=== PATIENT | female | born 1965 | race Caucasian/White ===

== ENCOUNTER 2023-02-16 02:22 | Outpatient (CLI) | payer MEDICARE, OTHER, SELFPAY | END 2023-02-16 02:23 | disposition home or self-care (01) | LOC: AMB 02-17 02:25 | PROVIDERS: PCP Family Medicine; Visit Provider Family Medicine | DX: S09.90XA Unspecified injury of head, initial encounter (principal); W18.30XA Fall on same level, unspecified, initial encounter; Y92.000 Kitchen of unspecified non-institutional (private) residence as the place of occurrence of the external cause | CPT/HCPCS: A0425; A0427 ==

== ENCOUNTER 2023-02-16 02:41 | Emergency (ER) | payer MEDICARE, OTHER, SELFPAY ==
[2023-02-16] VITALS (42 sets, daily range): BP systolic 84–114; BP diastolic 56–87; PULSE 80–96; RESP 16; TEMP 36; O2SAT 93–98
--- NOTE | 2023-02-16 03:06 | ED_ITS ---
HPI - General Adult General Chief complaint: Head Injury/Pain Stated complaint: head laceration Time Seen by Provider: 02/16/23 03:05 History of Present Illness HPI narrative: pt had unwitnessed fall, estimated 0030. was found by son in house. pt does not remember the fall. pt has laceration to head with hematoma. pt not on blood thinners. no neck pain. pt arrived with c?collar applied by EMS. 57-year-old woman presenting to the emergency department via EMS. Red trauma activated. Initial blood pressure 87/60. Noted to have a lot of blood at the scene. Further questioning does sound as though alcohol is likely involved. May have been 2 falls. Did fall down some concrete steps at 1 point. EMS reported broken glass. Does remember the fall down the stairs but does not remember the moment of hitting her head. Not having any neck pain. Found by son who called for help. There was about 2 hours between fall and being found. Sounds as though there have been falls before. Denies abdominal pain or back pain. No noted back pain. Only complaint of pain is her head. No visual loss or change. No extremity pain. This evening was in usual state of health without fever, diarrhea, shortness of breath, vomiting. Is not anticoagulated. However notes medications to be ?several?. History of cervical spine surgery/fusion. Related Data Allergies Allergy/AdvReac Type Severity Reaction Status Date / Time oxycodone Allergy Severe Verified 02/16/23 03:02 bee venom protein (honey bee) Allergy Unknown Verified 02/16/23 03:02 morphine Allergy Unknown Verified 02/16/23 03:02 omeprazole Allergy Unknown Verified 02/16/23 03:02 strawberry Allergy Unknown Verified 02/16/23 03:02 Review of Systems Status of ROS: Reports: 6 or more systems reviewed and unremarkable except as noted in History and below [facility] Social History Smoking Status: Current every day smoker How often do you have a drink containing alcohol: 2-3 times a week How many standard drinks containing alcohol do you have on a typical day: 3 or 4 AUDIT-C Alcohol total score: 4 Non-prescribed substance use: denies use Exam Narrative: Exam Narrative: Pleasant. NAD. Arrives with C-collar. GCS of 15. Supporting on airway breathing easily. Large caked and fresh blood the left parietal scalp. She has abrasion minimal bleeding at the right knee. Cranial nerves 2-12 are intact. Pupils are equal and briskly reactive. Able to move all extremities without difficulty with what I appreciate is normal level of strength. Head as noted above with hematoma in the area of blood. About half a racquetball sized. Difficult to assess without further cleaning. On initial evaluation though I can not appreciate a singular laceration. Neck is with C-collar. I am not able to palpate any areas of pain. Chest is without tenderness. No clavicular tenderness. No shoulder area tenderness. No pain to palpation of upper extremities. Abdomen is soft and nontender without evidence of injury. Rolling to examine the back is without tenderness or abnormality to palpation. No abrasion. Right knee is noted with a light abrasion. No surrounding swelling. Lower extremities are without edema otherwise. Generally well perfused. Const: Vital Signs, click to edit/add: Vital Signs - 24 hr 02/16/23 02:51 02/16/23 02:52 02/16/23 02:56 Temperature 96.8 F L Pulse Rate 89 88 Pulse Rate [Left P ulse Oximeter] 85 Respiratory Rate 16 Blood Pressure 102/68 Blood Pressure [Ri ght Upper Arm] 89/62 L Pulse Oximetry 97 97 [facility] 02/16/23 03:00 02/16/23 03:01 02/16/23 03:10 Temperature Pulse Rate 84 86 83 Pulse Rate [Left P ulse Oximeter] Respiratory Rate Blood Pressure 100/84 Blood Pressure [Ri ght Upper Arm] Pulse Oximetry 97 97 96 [facility] 02/16/23 03:12 02/16/23 03:20 02/16/23 03:22 Temperature Pulse Rate 81 86 85 Pulse Rate [Left P ulse Oximeter] Respiratory Rate Blood Pressure 106/67 102/87 Blood Pressure [Ri ght Upper Arm] Pulse Oximetry 97 97 97 [facility] 02/16/23 03:30 02/16/23 03:32 02/16/23 03:40 Temperature Pulse Rate 81 80 82 Pulse Rate [Left P ulse Oximeter] Respiratory Rate Blood Pressure 108/68 Blood Pressure [Ri ght Upper Arm] Pulse Oximetry 96 97 95 [facility] 02/16/23 03:42 08/27/23 03:50 02/16/23 03:51 Temperature Pulse Rate 83 84 87 Pulse Rate [Left P ulse Oximeter] Respiratory Rate Blood Pressure 101/67 99/64 Blood Pressure [Ri ght Upper Arm] Pulse Oximetry 95 94 94 Oxygen Delivery Me thod 02/16/23 03:52 02/16/23 04:00 02/16/23 04:02 Temperature Pulse Rate 87 86 86 Pulse Rate [Left P ulse Oximeter] Respiratory Rate Blood Pressure 102/68 Blood Pressure [Ri ght Upper Arm] Pulse Oximetry 94 94 96 Oxygen Delivery Me thod 02/16/23 04:10 02/16/23 04:31 02/16/23 04:33 Temperature Pulse Rate 83 87 83 Pulse Rate [Left P ulse Oximeter] Respiratory Rate Blood Pressure 107/70 Blood Pressure [Ri ght Upper Arm] Pulse Oximetry 95 95 97 Oxygen Delivery Me thod 02/16/23 04:40 02/16/23 04:50 02/16/23 05:00 Temperature Pulse Rate 87 86 89 Pulse Rate [Left P ulse Oximeter] Respiratory Rate Blood Pressure Blood Pressure [Ri ght Upper Arm] Pulse Oximetry 95 94 93 Oxygen Delivery Me thod 02/16/23 05:02 02/16/23 05:10 02/16/23 05:20 Temperature Pulse Rate 88 86 86 Pulse Rate [Left P ulse Oximeter] Respiratory Rate Blood Pressure 91/56 L Blood Pressure [Ri ght Upper Arm] Pulse Oximetry 95 95 94 Oxygen Delivery Me thod 02/16/23 05:30 02/16/23 05:32 02/16/23 05:40 Temperature Pulse Rate 90 90 87 Pulse Rate [Left P ulse Oximeter] Respiratory Rate Blood Pressure 84/61 L Blood Pressure [Ri ght Upper Arm] Pulse Oximetry 94 95 95 Oxygen Delivery Me thod 02/16/23 05:50 02/16/23 06:00 02/16/23 06:02 Temperature Pulse Rate 85 88 90 Pulse Rate [Left P ulse Oximeter] Respiratory Rate Blood Pressure 97/66 Blood Pressure [Ri ght Upper Arm] Pulse Oximetry 95 94 95 Oxygen Delivery Me thod 02/16/23 06:10 02/16/23 06:20 02/16/23 06:30 Temperature Pulse Rate 87 91 88 Pulse Rate [Left P ulse Oximeter] Respiratory Rate Blood Pressure Blood Pressure [Ri ght Upper Arm] Pulse Oximetry 94 94 95 Oxygen Delivery Me thod 02/16/23 06:32 02/16/23 06:40 02/16/23 06:50 Temperature Pulse Rate 85 87 89 Pulse Rate [Left P ulse Oximeter] Respiratory Rate Blood Pressure 114/70 Blood Pressure [Ri ght Upper Arm] Pulse Oximetry 96 95 95 Oxygen Delivery Me thod 02/16/23 07:00 02/16/23 07:02 02/16/23 07:10 Temperature Pulse Rate 92 96 88 Pulse Rate [Left P ulse Oximeter] Respiratory Rate Blood Pressure 99/68 Blood Pressure [Ri ght Upper Arm] Pulse Oximetry 95 95 95 Oxygen Delivery Me thod Documenting provider has reviewed patient's vital signs: yes Course Vital Signs Vital signs: Initial Vital Signs Pulse Rate 89 02/16/23 02:51 Blood Pressure 102/68 02/16/23 02:51 Blood Pressure Mean 79 02/16/23 02:51 Pulse Oximetry 97 02/16/23 02:51 Vital Signs Pulse Rate 89 02/16/23 02:51 Blood Pressure 102/68 02/16/23 02:51 Pulse Oximetry 97 02/16/23 02:51 Temperature 96.8 F L 02/16/23 02:56 Pulse Rate 88 02/16/23 07:10 Respiratory Rate 16 02/16/23 02:56 Blood Pressure 99/68 02/16/23 07:02 Pulse Oximetry 95 02/16/23 07:10 Oxygen Delivery Method Room Air 02/16/23 02:56 Medical Decision Making MDM Narrative Medical decision making narrative: Traumatic fall affected by alcohol. There appears to been loss of consciousness . Will be imaging head and neck. I do not believe the knee needs imaging. Then reassess scalp for potential repair. IV fluid resuscitation has been initiated. Will draw blood as well given potential degree of bleeding. Sent for CT head and neck imaging. I do review these images. Soft tissue swelling and left side parietal hematoma. I do not see intracranial acute abnormality nor any acute bony abnormality to the cervical spine. Radiology over-read as below CT head IMPRESSION: No acute intracranial posttraumatic finding. Subcutaneous hematoma in the left parietal region. No calvarial fracture. CT neck FINDINGS: : There is straightening which is usually due to muscle spasm, positioning or immobilization device. There are degenerative changes. There is no visible acute fracture, dislocation or destructive process. There is anterior cervical fusion at C5 through C7. There is posterior fusion at C6 and C7. Heterogeneous nodularity regarding both thyroid lobes without discrete measurable mass. Similar to November 25, 2016. Apical bullous disease similar to the prior study. IMPRESSION: Straightening. Postsurgical changes. Degenerative changes. No acute appearing finding when compared to November 25, 2016 Alcohol level was 0.15. Unexpected finding of neutrophilia at nearly 28,000. She indicates some familiarity with this. Did request smear as well which apparently was unremarkable. Hemoglobin hematocrit are reassuring though I would presume them to drift a little down yet. Platelets of 3 3 8 Did require some Zofran for nausea. Soaking and cleaning the blood from her scalp. Am able to visualize a couple points over this hematoma that are oozing. More like the skin is split/thinned from impact. Oozing blood. Largest of which is about 1 and half cm. After injecting with lidocaine with epinephrine to help control bleeding/feel., placed 3 interrupted 3-0 Ethilon sutures. This did control the bleeding. Subsequently antibiotic ointment and light pressure dressing applied. Has not bled through dressing prior to departure. Remains vitally well. See patient discharge plan Lab Data Lab results reviewed: Yes I reviewed the patient's lab results Labs: Lab Results 02/16/23 Range/Units 04:10 WBC 27.91 H* (4.50-11.00) K/uL RBC 3.91 L (4.00-5.20) m/uL Hgb 12.6 (12.0-16.0) gm/dL Hct 37.6 (33.0-51.0) % MCV 96 (80-100) fL MCH 32 (26-34) pg MCHC 34 (32-36) gm/dL RDW Coeff of Yecenia 13.8 (11.5-15.5) % Plt Count 338 (140-440) K/uL Neut % (Auto) 84.6 H (42.0-72.0) % Lymph % (Auto) 6.7 L (20-44) % Alfalfa % (Auto) 4.7 (0.0-11.0) % Eos % (Auto) 0.1 (0.0-7.0) % Baso % (Auto) 0.2 (0.0-3.0) % Neut # (Auto) 23.60 H (1.7-7.0) K/uL Lymph # (Auto) 1.90 (0.90-2.90) K/uL Alfalfa # (Auto) 1.30 H (0.00-0.90) K/UL Eos # (Auto) 0.00 (0.00-0.50) K/uL Baso # (Auto) 0.10 (0.00-0.30) K/uL Abs Immat Gran (auto) 1.00 H (0.00-0.30) K/uL Imm/Tot Granulo (auto) 3.7 % Diff Slide Review Acceptable Review (Acceptable) Sodium 139 (135-149) mmol/L Potassium 4.1 (3.6-5.1) mmol/L Chloride 104 (96-114) mmol/L Carbon Dioxide 22 (20-32) mmol/L Anion Gap 13 (7-15) mEq/L BUN 11 (7-30) mg/dL Creatinine 0.8 (0.5-1.5) mg/dL Estimated GFR 85 ml/min Glucose 105 (60-115) mg/dL Calcium 7.9 L (8.4-10.6) mg/dL Troponin I < 0.01 L (0.01-0.04) ng/mL C-Reactive Protein < 0.5 L (0.5-1.0) mg/dL NT-Pro-B Natriuret Pep 123 pg/mL Ethyl Alcohol 0.15 H (0.01-0.03) % ECG Data Attestation: I personally reviewed and interpreted this ECG as follows: (Normal sinus rhythm. Prominent P-wave suggesting some right atrial enlargement. Rate of 81) Critical Care Time Critical Care Time Critical Care Time: Yes Attestation: The patient required my highest level preparedness to intervene emergently and I personally spent this critical care time directly and personally managing the patient. This critical care time included: Obtaining a history; Examining the patient; Pulse oximetry; Ordering and reviewing of studies; Arranging urgent treatment with development of a management plan; Evaluation of patients response to treatment; Frequent reassessment discussions with other providers. This critical care time was performed to assess and manage the high probability of imminent life-threatening deterioration that could result in multiorgan failure. It was exclusive of separate billable procedures and treating other patients and teaching time. Total Critical Care Time in Minutes: 70 Discharge Plan Discharge Clinical Impression: Neutrophilia, Alcohol intoxication, Closed head injury, Hematoma of scalp, Laceration of scalp Condition: Improved Additional Instructions: Please follow up in your clinic/with your primary care provider to recheck your labs in a week or so and make next steps in evaluation. As I said your white count was rather high but I am unsure why. You have 3 sutures in your scalp. Have them removed in about a week. Leave this current somewhat pressure dressing on until tomorrow if tolerable. Can spend some time in the shower or I suppose bathtub late tomorrow to try to remove all the blood from your hair. Signs and symptoms of a concussion can be headache and nausea on exertion which would also be an indication to back off that level of activity and reassess in 1 week.? Other signs might be a smoldering headache or nausea for an extended period of time, mood lability, sleep disturbances, difficulty with concentration, persistent light sensitivity. ?Be seen if these symptoms develop and persist for a week. Return for severe headache, repeated vomiting, new and focal weakness, visual changes, discoordination, unusual somnolence Important to get quality and regular sleep and stay well hydrated. You must be more careful with your alcohol consumption I think as well. Follow Up/Referrals: Rafaela Hsu MD [Primary Care Provider] - Stand Alone Forms: [employer] Info Instructions
--- NOTE | 2023-02-16 03:17 | CRLHL7_ITS ---
For Patients: As a result of the Century Cures Act, medical imaging exams and procedure reports are released immediately into your electronic medical record. You may view this report before your referring provider. If you have questions, please contact your health care provider. INDICATION: Injury COMPARISON: November 25, 2016 TECHNIQUE: CT examination of the head was performed as axial sections without intravenous contrast. Images were obtained from the vertex of the skull through the skull base. Please note that all CT scans at this facility use dose modulation, iterative reconstruction, and/or weight-based dosing when appropriate to reduce radiation dose to as low as reasonably achievable. FINDINGS: The brain shows no sign of mass lesion, mass effect, hemorrhage, or edema. The ventricles and sulci are normal in appearance for the patient`s age. The visualized portions of the orbits are normal in appearance. Subcutaneous hematoma in the left parietal region. The osseous structures are normal in their appearance with no sign of abnormality in the skull base or calvarium. IMPRESSION: No acute intracranial posttraumatic finding. Subcutaneous hematoma in the left parietal region. No calvarial fracture. Please note that all CT scans at this facility use dose modulation, iterative reconstruction, and/or weight-based dosing when appropriate to reduce radiation dose to as low as reasonably achievable. Dictated by Gerard Noonan MD @ 02/16/2023 4:52:11 AM (Electronically Signed)
--- NOTE | 2023-02-16 03:17 | CRLHL7_ITS ---
For Patients: As a result of the Century Cures Act, medical imaging exams and procedure reports are released immediately into your electronic medical record. You may view this report before your referring provider. If you have questions, please contact your health care provider. INDICATION: Injury COMPARISON: November 25, 2016 TECHNIQUE: CT examination of the cervical spine is performed without contrast using spiral technique. Thin axial, sagittal and coronal reconstructions were made. Please note that all CT scans at this facility use dose modulation, iterative reconstruction, and/or weight-based dosing when appropriate to reduce radiation dose to as low as reasonably achievable. FINDINGS: : There is straightening which is usually due to muscle spasm, positioning or immobilization device. There are degenerative changes. There is no visible acute fracture, dislocation or destructive process. There is anterior cervical fusion at C5 through C7. There is posterior fusion at C6 and C7. Heterogeneous nodularity regarding both thyroid lobes without discrete measurable mass. Similar to November 25, 2016. Apical bullous disease similar to the prior study. IMPRESSION: Straightening. Postsurgical changes. Degenerative changes. No acute appearing finding when compared to November 25, [address] scans at this facility use dose modulation, iterative reconstruction, and/or weight-based dosing when appropriate to reduce radiation dose to as low as reasonably achievable. Dictated by Gerard Noonan MD @ 02/16/2023 4:56:32 AM (Electronically Signed)
[2023-02-16 04:18] LABS: Basophils Percent Auto 0.2 % (0.0-3.0); Eosinophils Percent Auto 0.1 % (0.0-7.0); Hematocrit 37.6 % (33.0-51.0); Hemoglobin* 12.6 gm/dL (12.0-16.0); Immature Granulocytes Pct Auto 3.7 %; Lymphocytes Percent Auto 6.7 % (20-44); Mean Corpuscular HGB Conc 34 gm/dL (32-36); Mean Corpuscular Hemoglobin 32 pg (26-34); Mean Corpuscular Volume 96 fL (80-100); Monocytes Percent Auto 4.7 % (0.0-11.0); Neutrophils Percent Auto 84.6 % (42.0-72.0); Platelet Count* 338 K/uL (140-440); RDW Coefficient of Variation % 13.8 % (11.5-15.5); Red Blood Count 3.91 m/uL (4.00-5.20)
[2023-02-16] MEDS: 0.9 % SODIUM CHLORIDE 1000 ml 1,000 ML 2000 ML IV (04:25)
[2023-02-16 04:30] LABS: Chloride* 104 mmol/L (96-114); Potassium* 4.1 mmol/L (3.6-5.1); Sodium* 139 mmol/L (135-149)
[2023-02-16 04:32] LABS: Creatinine* 0.8 mg/dL (0.5-1.5); Estimated Glomerular Filt Rate 85 ml/min
[2023-02-16 04:33] LABS: Anion Gap 13 mEq/L (7-15); Blood Urea Nitrogen* 11 mg/dL (7-30); Carbon Dioxide* 22 mmol/L (20-32); Ethanol* 0.15 % (0.01-0.03); Glucose* 105 mg/dL (60-115)
[2023-02-16 04:34] LABS: Calcium* 7.9 mg/dL (8.4-10.6)
[2023-02-16 04:41] LABS: White Blood Count* 27.91 K/uL (4.50-11.00)
[2023-02-16 04:42] LABS: Slide Review Reflex Yes
[2023-02-16 04:44] LABS: C Reactive Protein* < 0.5 mg/dL (0.5-1.0); NT Pro B Type NatriureticPept* 123 pg/mL
[2023-02-16 04:45] LABS: Troponin I* < 0.01 ng/mL (0.01-0.04)
[2023-02-16 04:49] LABS: Slide Review Acceptable Review (Acceptable)
--- NOTE | 2023-02-16 07:20 | ED.NURSE ---
pt head lac cleaned, bacitracin applied and wrapped.
[2023-02-16] MEDS: ONDANSETRON ODT 4 MG TAB PO (07:55)
--- NOTE | 2023-02-16 07:55 | PC.NURSE ---
pt having nausea and some dizziness, zofran ODT given as IV already removed
--- NOTE | 2023-02-16 08:19 | PC.NURSE ---
pt assisted to son's car via wheelchair, did have emesis and upon standing states, oh, my hip is out, pt maneuvers herself and is able to fix it, climbed into son's truck
== END 2023-02-16 08:19 | disposition home or self-care (01) ==
PROVIDERS: Emergency Provider Family Medicine; PCP Family Medicine
DX: D72.828 Other elevated white blood cell count (principal); F10.129 Alcohol abuse with intoxication, unspecified; S01.01XA Laceration without foreign body of scalp, initial encounter; W19.XXXA Unspecified fall, initial encounter
CPT/HCPCS: 36415; 70450; 72125; 80048; 82077; 83880; 84484; 85025; 86140; 93005; 99284; 99291; A9270; G0390; J7030

== ENCOUNTER 2023-05-06 10:30 | Outpatient (RCR) | payer MEDICARE, SELFPAY ==
[2023-04-15 12:13] LABS: Eosinophils Percent Auto 2.4 % (0.0-7.0); Hematocrit 37.7 % (33.0-51.0); Hemoglobin* 12.2 gm/dL (12.0-16.0); Immature Granulocytes Pct Auto 0.7 %; Lymphocytes Percent Auto 21.2 % (20-44); Mean Corpuscular HGB Conc 32 gm/dL (32-36); Mean Corpuscular Hemoglobin 28 pg (26-34); Mean Corpuscular Volume 87 fL (80-100); Neutrophils Percent Auto 67.7 % (42.0-72.0); Platelet Count* 434 K/uL (140-440); RDW Coefficient of Variation % 14.7 % (11.5-15.5); Red Blood Count 4.32 m/uL (4.00-5.20); White Blood Count* 13.12 K/uL (4.50-11.00)
[2023-04-15 12:15] LABS: Slide Review Reflex No
[2023-04-21 14:38] LABS: JAK2 Qual Mutation by PCR Not Detected; JAK2 Qual, Source Whole Blood
[2023-04-22 17:28] LABS: Qual BCR Result Not Detected; Qual BCR Source Whole Blood
== END 2023-10-12 23:59 | disposition home or self-care (01) ==
LOC: CCIC 10:30
PROVIDERS: PCP Family Medicine; Visit Provider Internal Medicine Hematology & Oncology
DX: D72.829 Elevated white blood cell count, unspecified (principal); Z72.0 Tobacco use
CPT/HCPCS: 36415; 81270; 85025; 97110; 97140; 99202; 99204; 99205; 99212; 99213

== ENCOUNTER 2023-05-06 14:00 | Outpatient (RCR) | payer MEDICARE, OTHER, SELFPAY ==
--- NOTE | 2023-03-24 10:06 | ONC.NURNOTE ---
Received referral for patient for leukocytosis and thrombocytosis. Called patient to see if had labs done elsewhere from ER, she notes that peripheral smear and labs done at [facility]. Job Foreman called medical records [facility] to request peripheral smear, CBC, other labs, pathology/scans, and last provider note. Patient aware that will call her after talking with air bag builder and going over these results with her Friday.
== END 2023-06-19 13:41 | disposition home or self-care (01) ==
PROVIDERS: PCP Family Medicine; Visit Provider Student in an Organized Health Care Education/Training Program
DX: S06.0X0D Concussion without loss of consciousness, subsequent encounter (principal); Z51.89 Encounter for other specified aftercare
CPT/HCPCS: 97110; 97140; 97162; 97163

== ENCOUNTER 2023-09-06 12:48 | Emergency (ER) | payer MEDICARE, OTHER, SELFPAY ==
[2023-09-06 13:01] VITALS: BP 149/99; PULSE 91; RESP 18; TEMP 36.2; O2SAT 98; BMI 21.8
--- NOTE | 2023-09-06 13:27 | ED.FEMALEGU ---
HPI - Female Genitourinary General Date Seen: 09/06/23 Chief complaint: Urogenital Problems, Female Stated complaint: uti Time Seen by Provider: 09/06/23 13:13 Source: patient Mode of arrival: ambulatory Limitations: no limitations History of Present Illness HPI Narrative: Patient is a 58-year-old female presenting or what she believes is a UTI. States since last night she has been having suprapubic pain with along with burning with urination. Denies having symptoms like this before. States her only previous UTI was when she has had pyelonephritis in the past. States this is not feel like that at that time she also had flank pain. Denies fevers, chills, lightheadedness, dizziness, weakness, numbness, diarrhea, constipation, nausea/vomiting. Has been eating and drinking without issue. No other concerns noted at this time. Related Data Home Medications Medication Instructions Recorded Confirmed buspirone 30 mg tablet 30 mg PO BID 04/15/23 09/06/23 cyclobenzaprine 10 mg tablet 10 mg PO TID PRN 04/15/23 09/06/23 ibuprofen 600 mg tablet 600 mg PO Q8H PRN 04/15/23 09/06/23 Previous Rx's Medication Instructions Recorded cephalexin 250 mg capsule 250 mg PO QID #20 caps 09/06/23 Allergies Allergy/AdvReac Type Severity Reaction Status Date / Time oxycodone Allergy Severe itch Verified 09/06/23 13:04 strawberry Allergy Severe Anaphylaxis Verified 09/06/23 13:04 Sulfa (Sulfonamide Allergy Severe Anaphylaxis Verified 09/06/23 13:04 Antibiotics) omeprazole Allergy Intermediate hives Verified 09/06/23 13:04 bee venom protein (honey bee) Allergy Unknown swelling Verified 09/06/23 13:04 of site morphine Allergy Unknown itchy Verified 09/06/23 13:04 latex AdvReac Intermediate pain when Verified 09/06/23 13:04 in contact with skin Review of Systems Status of ROS: Reports: 10 or more systems reviewed and unremarkable except as noted in History and below PFSH PFS Social History Smoking Status: Current every day smoker What tobacco products do you use: cigarettes How often do you have a drink containing alcohol: 2-3 times a week How many standard drinks containing alcohol do you have on a typical day: 3 or 4 AUDIT-C Alcohol total score: 4 Non-prescribed substance use: denies use Exam Narrative: Exam Narrative: Const: Well-nourished, Well-developed, in mild distress Eyes: PERRL, no conjunctival injection, and symmetrical lids HENT: Atraumatic external nose and ears. Moist mucous membranes. Neck: Symmetric, trachea midline, No thyromegaly. CVS: RRR, No murmurs or gallops. Peripheral pulses 2+ and equal in all extremities RESP: Unlabored respiratory effort. Clear to auscultation bilaterally. GI: Mild suprapubic tenderness, Nondistended, No rebound or guarding. MSK:Extremities w/o deformity, Normal Active ROM Skin: Warm, Dry. No rashes or lesions. Neuro: Normal Muscle tone, No focal neurological deficits. Psych: Awake, Alert, & Oriented x3. Appropriate mood and affect. Const: Vital Signs, click to edit/add: Vital Signs - 24 hr 09/06/23 13:01 Temperature 97.2 F L Pulse Rate [Right Pulse Oximeter] 91 Respiratory Rate 18 Blood Pressure [Ri ght Upper Arm] 149/99 H Pulse Oximetry 98 Oxygen Delivery Me thod Room Air Course Vital Signs Vital signs: Initial Vital Signs Temperature 97.2 F L 09/06/23 13:01 Temperature Source Temporal Artery Scan 09/06/23 13:01 Pulse Rate 91 09/06/23 13:01 Respiratory Rate 18 09/06/23 13:01 Blood Pressure 149/99 H 09/06/23 13:01 Blood Pressure Mean 115 H 09/06/23 13:01 Blood Pressure Position Sitting 09/06/23 13:01 Pulse Oximetry 98 09/06/23 13:01 Oxygen Delivery Method Room Air 09/06/23 13:01 Vital Signs Temperature 97.2 F L 09/06/23 13:01 Pulse Rate 91 09/06/23 13:01 Respiratory Rate 18 09/06/23 13:01 Blood Pressure 149/99 H 09/06/23 13:01 Pulse Oximetry 98 09/06/23 13:01 Oxygen Delivery Method Room Air 09/06/23 13:01 Temperature 97.2 F L 09/06/23 13:01 Pulse Rate 91 09/06/23 13:01 Respiratory Rate 18 09/06/23 13:01 Blood Pressure 149/99 H 09/06/23 13:01 Pulse Oximetry 98 09/06/23 13:01 Oxygen Delivery Method Room Air 09/06/23 13:01 MDM - Female Genitourinary MDM Narrative Medical decision making narrative: Patient is a 58-year-old female presenting throat sounds like a urinary tract infection. This seems to be localize to the bladder. She is having no flank pain and pyelonephritis seems unlikely. Her vital signs are normal and not believe is necessary to do a full workup on her. We will do urinalysis. The urinalysis returned showing leukocyte Estrace, moderate bacteria 5-10 white blood cells. It was not a clean sample between the urinalysis and her symptoms I believe it is reasonable to treat her for is a UTI. She will be sent Keflex. She is agreeable to this plan he Lab Data Labs: Lab Results 09/06/23 Range/Units 13:14 Urine Color Yellow (Yellow) Urine Appearance Clear (Clear) Urine pH 6.5 (5.0-8.5) Ur Specific Joseph 1.010 (1.000-1.030) Urine Protein Negative (Negative) Urine Glucose (UA) Negative (Negative) Urine Ketones Negative (Negative) Urine Blood 2+ A (Negative) Urine Nitrite Negative (Negative) Urine Bilirubin Negative (Negative) Urine Urobilinogen 0.2 (0.2-1.0) Ur Leukocyte Esterase 1+ A (Negative) Urine RBC 0-2 (0-2) Urine WBC 5-10 A (0-5) Ur Squamous Epith Cells Moderate A (None-Few) Urine Bacteria Moderate A (None) Discharge Plan Discharge Clinical Impression: Urinary tract infection Qualifiers: Urinary tract infection type: acute cystitis Hematuria presence: without hematuria Qualified Code(s): N30.00 - Acute cystitis without hematuria Patient Disposition: Home, Self-Care Condition: Stable Instructions: Urinary Tract Infection in Women (DC) Additional Instructions: Take antibiotics as directed. Follow up with the primary care provider symptoms are not improving in next few days Prescriptions: New cephalexin 250 mg capsule 250 mg PO QID Qty: 20 0RF No Action buspirone 30 mg tablet 30 mg PO BID cyclobenzaprine 10 mg tablet 10 mg PO TID PRN ibuprofen 600 mg tablet 600 mg PO Q8H PRN Follow Up/Referrals: Rafaela Hsu MD [Primary Care Provider] - Stand Alone Forms: [employer] Info Instructions
[2023-09-06 14:19] LABS: Appearance Urine Clear (Clear); Bilirubin Urine Negative (Negative); Blood Urine 2+ (Negative); Color Urine Yellow (Yellow); Glucose Urine Negative (Negative); Ketones Urine Negative (Negative); Leukocyte Esterase Urine 1+ (Negative); Nitrite Urine Negative (Negative); Protein Urine Negative (Negative); Urobilinogen Urine 0.2 (0.2-1.0); pH Urine 6.5 (5.0-8.5)
[2023-09-06 14:44] LABS: Bacteria Urine Moderate; RBC Urine 0-2 (0-2); Squamous Epithelial Cell Urine Moderate (None-Few)
== END 2023-09-06 14:57 | disposition home or self-care (01) ==
PROVIDERS: Emergency Provider Student in an Organized Health Care Education/Training Program; PCP Family Medicine
DX: N39.0 Urinary tract infection, site not specified (principal)
CPT/HCPCS: 81001; 87086; 87186; 99282; 99283

== ENCOUNTER 2024-02-13 15:50 | Outpatient (CLI) | payer MEDICARE, SELFPAY ==
[2024-02-13 19:44] LABS: Bacterial Vaginosis* Negative (Negative); Candida glab/krus NOT DETECTED (No Detected); Candida species NOT DETECTED (No Detected); Trichomonas vaginalis NOT DETECTED (No Detected)
== END 2024-02-13 15:51 | disposition home or self-care (01) ==
LOC: NFLDREF 16:00
PROVIDERS: PCP Family Medicine; Visit Provider Obstetrics & Gynecology
DX: R39.89 Other symptoms and signs involving the genitourinary system (principal)
CPT/HCPCS: 81513; 87481; 87661